=== PATIENT | male | born 1985 | race Hispanic/Latino ===

== ENCOUNTER 2018-08-26 15:30 | Emergency (ER) | payer SELFPAY ==
[2018-08-26] MEDS ORDERED: NA CHLORIDE 0.9% 2,000 ML ONE (16:35)
[2018-08-26 16:57] LABS: Absolute Lymphocytes (CBC) 1.9 K/uL (0.7-4.9); Absolute Monocytes 0.4 K/uL (0.1-1.3); Absolute Neutrophil 2.6 K/uL (1.8-8.0); Basophils % 0.8 % (0-1.3); Eosinophils % 3.6 % (0-4.4); Hematocrit 42.8 % (39.6-49.0); Lymphocytes % 37.3 % (15.3-44.8); MPV 9.2 fL (7.6-11.3); Monocytes % 7.3 % (3.3-12.3); RBC Red Blood Cell Count 4.88 M/uL (4.33-5.43)
[2018-08-26 17:11] LABS: Urine Blood NEGATIVE (NEG); Urine Glucose 2+ (NEG); Urine Protein NEGATIVE (NEG)
[2018-08-26 17:20] LABS: ALT/SGPT 31 U/L (12-78); AST/SGOT 13 U/L (15-37); Albumin 3.7 g/dL (3.4-5.0); Alkaline Phosphatase 125 U/L (45-117); BUN Blood Urea Nitrogen 9 mg/dL (7-18); Bicarbonate 27 mmol/L (21-32); Bilirubin Direct 0.1 mg/dL (0-0.2); Bilirubin Total 0.5 mg/dL (0.2-1.0); Protein, Total 6.8 g/dL (6.4-8.2); Sodium Level 136 mmol/L (136-145)
[2018-08-26 17:23] LABS: Glucose Level 441 mg/dL (74-106)
[2018-08-26] MEDS ORDERED: INSULIN -REGULAR HUMAN 50 UNIT/0.5 ML ML ONE (18:57)
--- NOTE | 2018-08-26 19:56 | ER ---
Nurse's Notes [facility] Name: Collins Petersen Age: 33 yrs Sex: Male : 1985 Arrival Date: 08/26/2018 Time: 15:34 Bed 14 Private MD: None, None Diagnosis: Type 2 diabetes mellitus;Hyperglycemia, unspecified Presentation: 08/26 15:56 Presenting complaint: Patient states: 3 weeks to a month ago, i noticed kristian been peeing hj a lot and been drinking a lot of water; i easily got fatigue and feel weak sometimes; denies F/C; denies N/V; took my blood sugar and it gave 384 and an hour ago;. Transition of care: patient was not received from another setting of care. Onset of symptoms was August 26, 2018. Risk Assessment: Do you want to hurt yourself or someone else? Patient reports no desire to harm self or others. Initial Sepsis Screen: Does the patient meet any 2 criteria? No. Patient's initial sepsis screen is negative. Does the patient have a suspected source of infection? No. Patient's initial sepsis screen is negative. Care prior to arrival: None. 15:56 Method Of Arrival: Ambulatory 15:56 Acuity: THAO 3 hj Triage Assessment: 16:00 General: Appears in no apparent distress. uncomfortable, Behavior is calm, cooperative, hj appropriate for age. Pain: Denies pain. Historical: - Allergies: 15:59 No Known Allergies; hj - Home Meds: 15:59 None [Active]; hj - PMHx: 15:59 None; hj - PSHx: 15:59 Appendectomy; hj - Immunization history:: Adult Immunizations up to date. - Social history:: Smoking status: Patient/guardian denies using tobacco, Patient/guardian denies using alcohol. - Ebola Screening: : Patient negative for fever greater than or equal to 101.5 degrees Fahrenheit, and additional compatible Ebola Virus Disease symptoms Patient denies exposure to infectious person Patient denies travel to an Ebola-affected area in the 21 days before illness onset. Screenin:00 Abuse screen: Denies threats or abuse. Denies injuries from another. Nutritional hj screening: No deficits noted. Tuberculosis screening: No symptoms or risk factors identified. Fall Risk None identified. Assessment: 16:11 General: Appears in no apparent distress. comfortable, Behavior is calm, cooperative, rb1 Reports fatigue for Denies fever. Pain: Denies pain. Neuro: Level of Consciousness is awake, alert, obeys commands, Oriented to person, place, time, situation. Cardiovascular: Capillary refill < 3 seconds is brisk in bilateral fingers. Respiratory: Airway is patent Respiratory effort is even, unlabored, Respiratory pattern is regular, symmetrical. GI: No signs and/or symptoms were reported involving the gastrointestinal system. : Reports urinary frequency, since x 2 - 3 months. Derm: Skin is dry, Skin is normal, Skin temperature is warm. 17:11 Reassessment: Patient appears in no apparent distress at this time. No changes from rb1 previously documented assessment. 18:11 Reassessment: Patient appears in no apparent distress at this time. Patient and/or rb1 family updated on plan of care and expected duration. Pain level reassessed. Patient is alert, oriented x 3, equal unlabored respirations, skin warm/dry/pink. Patient denies pain at this time. 19:00 Reassessment: Patient appears in no apparent distress at this time. Patient and/or jb4 family updated on plan of care and expected duration. Pain level reassessed. Patient is alert, oriented x 3, equal unlabored respirations, skin warm/dry/pink. 20:12 Reassessment: Patient appears in no apparent distress at this time. Patient and/or jb4 family updated on plan of care and expected duration. Pain level reassessed. Patient is alert, oriented x 3, equal unlabored respirations, skin warm/dry/pink. Vital Signs: 16:00 BP 127 / 84; Pulse 99; Resp 18; Temp 98.0(O); Pulse Ox 97% on R/A; Weight 90.72 kg; hj Height 5 ft. 11 in. (180.34 cm); Pain 0/10; 17:00 BP 122 / 75; Pulse 70; Resp 16; Pulse Ox 98% on R/A; rb1 18:00 BP 126 / 79; Pulse 82; Resp 17; Pulse Ox 100% on R/A; Pain 0/10; rb1 19:00 BP 125 / 79; Pulse 84; Resp 16; Pulse Ox 97% on R/A; jb4 20:00 BP 117 / 73; Pulse 82; Resp 16; Pulse Ox 100% on R/A; jb4 16:00 Body Mass Index 27.89 (90.72 kg, 180.34 cm) ED Course: 15:34 Patient arrived in ED. mr 15:34 None, None is Private Physician. mr 15:59 Triage completed. hj 16:00 Arm band placed on left wrist. hj 16:00 Patient has correct armband on for positive identification. Placed in gown. Bed in low hj position. Call light in reach. Side rails up X 1. Adult w/ patient. 16:11 Pulse ox on. NIBP on. rb1 16:12 Radha West, RN is Primary Nurse. rb1 16:13 Nain Thomas PA is PHCP. jr8 16:13 Elier Mejia MD is Attending Physician. jr8 16:45 Inserted saline lock: 22 gauge in right antecubital area, using aseptic technique. rb1 Blood collected. 19:00 Report given to OLGA Romero. rb1 20:00 No provider procedures requiring assistance completed. IV discontinued, intact, jb4 bleeding controlled. Administered Medications: 16:51 Drug: NS 0.9% 1000 ml Route: IV; Rate: 1000 ml; Site: right antecubital; rb1 16:51 Drug: NS 0.9% 1000 ml Route: IV; Rate: 1000 ml; Site: right antecubital; rb1 18:45 Drug: Insulin Regular Human 10 units {Co-Signature: tw2 (Nadeen Catalan RN).} Route: IVP; rb1 Site: right antecubital; 20:13 Follow up: Response: No adverse reaction; Blood sugar is lowered jb4 Point of Care Testing: Blood Glucose: 16:00 Blood Glucose: 407 mg/dL; hj 18:20 Blood Glucose: 391 mg/dL; em1 20:00 Blood Glucose: 123 mg/dL; jb4 Ranges: Outcome: 19:56 Discharge ordered by . jr8 20:21 Discharged to home ambulatory, with family. jb4 20:21 Condition: stable 20:21 Discharge instructions given to patient, family, Instructed on discharge instructions, follow up and referral plans. medication usage, Signs and symptoms of High and low blood sugar. Demonstrated understanding of instructions, follow-up care, medications, Signs and symptoms of high and low blood sugar. Prescriptions given X 1. 20:22 Patient left the ED. jb4 Signatures: Christie Castro Eric em1 Nain Thomas PA PA jr8 Lior Ribera, OLGA RN hj Radha West RN RN rb1 Nick Spears RN RN jb4 Nadeen Catalan RN tw2
--- NOTE | 2018-08-26 19:56 | EDPHYS ---
Physician Documentation [facility] Name: Collins Petersen Age: 33 yrs Sex: Male : 1985 Arrival Date: 08/26/2018 Time: 15:34 Bed 14 Private MD: None, None ED Physician Elier Mejia HPI: 08/26 16:30 This 33 yrs old Male presents to ER via Ambulatory with complaints of High jr8 Blood Sugar, Urinary Frequency, Dizziness, Vision Problem. 16:30 Onset: The symptoms/episode began/occurred gradually, 1 month(s) ago. Current symptoms: jr8 In the emergency department the patient's symptoms are unchanged from the initial presentation. The patient has not experienced similar symptoms in the past. The patient has not recently seen a physician. Patient stated that he noticed that he has had urinary frequency, thirst, dry skin, blurred vision, dizziness that will not go away. History of diabetes in the family. Checked his glucose level this morning for the first time and read in the 300s. Came to ED at that time to be evaluated . Historical: - Allergies: 15:59 No Known Allergies; hj - Home Meds: 15:59 None [Active]; hj - PMHx: 15:59 None; hj - PSHx: 15:59 Appendectomy; hj - Immunization history:: Adult Immunizations up to date. - Social history:: Smoking status: Patient/guardian denies using tobacco, Patient/guardian denies using alcohol. - Ebola Screening: : Patient negative for fever greater than or equal to 101.5 degrees Fahrenheit, and additional compatible Ebola Virus Disease symptoms Patient denies exposure to infectious person Patient denies travel to an Ebola-affected area in the 21 days before illness onset. ROS: 16:30 ENT: Negative for injury, pain, and discharge, Neck: Negative for injury, pain, and jr8 swelling, Cardiovascular: Negative for chest pain, palpitations, and edema, Respiratory: Negative for shortness of breath, cough, wheezing, and pleuritic chest pain, Abdomen/GI: Negative for abdominal pain, nausea, vomiting, diarrhea, and constipation, Back: Negative for injury and pain, MS/Extremity: Negative for injury and deformity, Skin: Negative for injury, rash, and discoloration. 16:30 Eyes: Positive for blurry vision. 16:30 : Positive for urinary frequency. 16:30 Neuro: Positive for dizziness, Negative for altered mental status, gait disturbance, headache, loss of consciousness, numbness, seizure activity, speech changes, syncope, near syncope, tingling, tinnitus, tremor, weakness. 16:30 Endocrine: Positive for polydipsia, polyphagia, polyuria, weight loss. Exam: 16:30 Eyes: Pupils equal round and reactive to light, extra-ocular motions intact. Lids and jr8 lashes normal. Conjunctiva and sclera are non-icteric and not injected. Cornea within normal limits. Periorbital areas with no swelling, redness, or edema. ENT: Nares patent. No nasal discharge, no septal abnormalities noted. Tympanic membranes are normal and external auditory canals are clear. Oropharynx with no redness, swelling, or masses, exudates, or evidence of obstruction, uvula midline. Mucous membranes moist. Neck: Trachea midline, no thyromegaly or masses palpated, and no cervical lymphadenopathy. Supple, full range of motion without nuchal rigidity, or vertebral point tenderness. No Meningismus. Cardiovascular: Regular rate and rhythm with a normal S1 and S2. No gallops, murmurs, or rubs. Normal PMI, no JVD. No pulse deficits. Respiratory: Lungs have equal breath sounds bilaterally, clear to auscultation and percussion. No rales, rhonchi or wheezes noted. No increased work of breathing, no retractions or nasal flaring. Abdomen/GI: Soft, non-tender, with normal bowel sounds. No distension or tympany. No guarding or rebound. No evidence of tenderness throughout. Back: No spinal tenderness. No costovertebral tenderness. Full range of motion. Skin: Warm, dry with normal turgor. Normal color with no rashes, no lesions, and no evidence of cellulitis. MS/ Extremity: Pulses equal, no cyanosis. Neurovascular intact. Full, normal range of motion. Neuro: Awake and alert, GCS 15, oriented to person, place, time, and situation. Cranial nerves II-XII grossly intact. Motor strength 5/5 in all extremities. Sensory grossly intact. Cerebellar exam normal. Normal gait. Vital Signs: 16:00 BP 127 / 84; Pulse 99; Resp 18; Temp 98.0(O); Pulse Ox 97% on R/A; Weight 90.72 kg; hj Height 5 ft. 11 in. (180.34 cm); Pain 0/10; 17:00 BP 122 / 75; Pulse 70; Resp 16; Pulse Ox 98% on R/A; rb1 18:00 BP 126 / 79; Pulse 82; Resp 17; Pulse Ox 100% on R/A; Pain 0/10; rb1 19:00 BP 125 / 79; Pulse 84; Resp 16; Pulse Ox 97% on R/A; jb4 20:00 BP 117 / 73; Pulse 82; Resp 16; Pulse Ox 100% on R/A; jb4 16:00 Body Mass Index 27.89 (90.72 kg, 180.34 cm) hj MDM: 16:22 Patient medically screened. [facility] 19:54 Data reviewed: vital signs, nurses notes, lab test result(s), and as a result, I will jr8 discharge patient. Data interpreted: Pulse oximetry: on room air is 100 %. Interpretation: normal. Counseling: I had a detailed discussion with the patient and/or guardian regarding: the historical points, exam findings, and any diagnostic results supporting the discharge/admit diagnosis, lab results, radiology results, the need for outpatient follow up, a family practitioner, to return to the emergency department if symptoms worsen or persist or if there are any questions or concerns that arise at home. Response to treatment: the patient's symptoms have markedly improved after treatment. ED course: Detailed discussion about glycemic control and type 2 diabetes. That he will be started on medicine upon d/c today and needs to f/u with FM soon. 08/26 16:14 Order name: CBC with Diff; Complete Time: 17:15 [facility] 08/26 16:14 Order name: Basic Metabolic Panel; Complete Time: 17: [facility] 08/26 16:14 Order name: Ketone, Serum; Complete Time: 17:29 [facility] 08/26 16:14 Order name: LFT's; Complete Time: 17: [facility] 08/26 17:08 Order name: Urine Dipstick--Ancillary (enter results); Complete Time: 17:15 em1 08/26 18:22 Order name: Glucose, Ancillary Testing; Complete Time: 18:25 [facility] 08/26 16:14 Order name: Urine Dipstick-Ancillary (obtain specimen); Complete Time: 17:07 [facility] 08/26 16:14 Order name: IV; Complete Time: 16:55 [facility] 08/26 18:22 Order name: Glucose, Ancillary Testing; Complete Time: 18:25 EDMS Administered Medications: 16:51 Drug: NS 0.9% 1000 ml Route: IV; Rate: 1000 ml; Site: right antecubital; rb1 16:51 Drug: NS 0.9% 1000 ml Route: IV; Rate: 1000 ml; Site: right antecubital; rb1 18:45 Drug: Insulin Regular Human 10 units {Co-Signature: tw2 (Nadeen Catalan RN).} Route: IVP; rb1 Site: right antecubital; 20:13 Follow up: Response: No adverse reaction; Blood sugar is lowered jb4 Point of Care Testing: Blood Glucose: 16:00 Blood Glucose: 407 mg/dL; hj 18:20 Blood Glucose: 391 mg/dL; em1 20:00 Blood Glucose: 123 mg/dL; jb4 Ranges: Critical Glucose Levels:Adult <50 mg/dl or >400 mg/dl <40 mg/dl or >180 mg/dl Disposition: 08/27 07:19 Co-signature as Attending Physician, Elier Mejia MD I agree with the assessment and malik plan of care. Disposition: 08/26/18 19:56 Discharged to Home. Impression: Type 2 diabetes mellitus, Hyperglycemia, unspecified. - Condition is Stable. - Discharge Instructions: Type 2 Diabetes Mellitus, Diagnosis, Adult, Hyperglycemia, Blood Glucose Monitoring, Adult, Preventing Type 2 Diabetes Mellitus, Type 2 Diabetes Mellitus, Self Care, Adult. - Prescriptions for Metformin 500 mg Oral Tablet - take 1 tablet by ORAL route once daily for 7 days Then take 1 tablet with morning meals AND evening meals; 21 tablet. - Medication Reconciliation Form, Thank You Letter, Antibiotic Education, Prescription Opioid Use, Work release form form. - Follow up: Private Physician; When: 2 - 3 days; Reason: Recheck today's complaints, Continuance of care, Re-evaluation by your physician. - Problem is new. - Symptoms have improved. Signatures: Dispatcher [employer] Elier Mulligan MD MD cha Roszak, Josh, PA PA jr8 Lior Ribera RN OLGA hj Radha West RN RN rb1 Nick Spears RN RN jb4 Nadeen Catalan RN tw2 Corrections: (The following items were deleted from the chart) 08/26 20:22 19:56 08/26/2018 19:56 Discharged to Home. Impression: Type 2 diabetes mellitus; jb4 Hyperglycemia, unspecified. Condition is Stable. Forms are Medication Reconciliation Form, Thank You Letter, Antibiotic Education, Prescription Opioid Use. Follow up: Private Physician; When: 2 - 3 days; Reason: Recheck today's complaints, Continuance of care, Re-evaluation by your physician. Problem is new. Symptoms have improved. jr8
[2018-08-26 20:55] VITALS: TEMP 98
[2018-08-26 21:12] VITALS: BP 117/73; O2SAT 100
== END 2018-08-26 20:22 | disposition home or self-care (01) ==
LOC: ER 15:30
DX: E11.65 Type 2 diabetes mellitus with hyperglycemia (principal)
CPT/HCPCS: 36415; 80048; 80076; 81003; 82010; 82962; 85025; 96374; 99284; J7030